=== PATIENT | female | born 1995 | race African-American/Black ===

== ENCOUNTER → 2023-04-01 | Outpatient (CLI) | payer OTHER ==
--- NOTE | 2023-04-03 15:42 | MR ---
EXAMINATION TYPE: MR knee RT wo con DATE OF EXAM: 04/01/2023 COMPARISON: None HISTORY: Rt knee pain and swelling, especially around kneecap TECHNIQUE: Multiplanar, multisequence imaging of the right knee is performed without IV contrast. FINDINGS: The osseous structures are intact and there is no bone contusion or fracture. The patella and patellar cartilage is intact and there is no joint effusion or chondromalacia patella . The quadriceps and patellar tendons are intact. There is no soft tissue swelling. The cruciate and collateral ligaments are intact. There is no meniscal tear either the medial and lateral meniscus. IMPRESSION: No significant abnormality seen.
== END | disposition home or self-care (01) ==
LOC: RADMRIMAIN 10:36
PROVIDERS: ATTEND Family Medicine
DX: M25.561 Pain in right knee (principal); G89.29 Other chronic pain

== ENCOUNTER → 2024-08-15 | Outpatient (CLI) | payer OTHER ==
--- NOTE | 2024-08-15 09:43 | MR ---
EXAMINATION TYPE: MR brain wo/w con DATE OF EXAM: 08/15/2024 9:20 AM COMPARISON: None. CLINICAL INDICATION: Female, 29 years old with history of R51.9 headaches; PHH, Migraines, numbness i n hands. TECHNIQUE: Multi planar, multi sequence imaging was performed through the brain including: T1, T2, In version recovery, susceptibility weighted imaging and gradient echo imaging and Diffusion weighted im aging. The patient was then given intravenous contrast and multi planar, T1 fat-saturation images wer e obtained. IV Contrast: 8 mL Gadobutrol FINDINGS: The gardner-white junctions, ventricular system, basal cisterns appear unremarkable. Diffusion-weighted imaging shows no evidence of restricted diffusion to suggest acute/subacute infarct. Intracranial ar terial flow voids are maintained. Midline structures show no abnormality. The susceptibility weighted images do not reveal any evidence for micro-hemorrhage. After administration of gadolinium, no abnor mal enhancement is seen. The bone marrow signal is within normal limits. Paranasal sinuses and mastoid air cells: Mild scattered paranasal sinus disease. Visualized orbits: Orbital contents are intact. IMPRESSION: 1. No evidence of intracranial mass, acute/subacute infarct, or abnormal enhancement. 2. No evidence for active demyelination nor significant white matter changes. [facility], , 08/15/2024 9:41 AM
== END | disposition home or self-care (01) ==
LOC: RADMRIMAIN 08:40
PROVIDERS: ATTEND Family Medicine
DX: R51.9 Headache, unspecified (principal)
CPT/HCPCS: 70553; A9585

== ENCOUNTER → 2024-08-22 | Outpatient (CLI) | payer OTHER ==
--- NOTE | 2024-08-22 09:57 | MR ---
EXAMINATION TYPE: MR knee LT wo con DATE OF EXAM: 08/22/2024 9:24 AM COMPARISON: None. CLINICAL INDICATION: Female, 29 years old with history of M25.569 PAIN IN UNSPECIFIED KNEE N94.19 DYS PAREUNI, RT knee pain medial and lateral sides, Knee locks going up stairs, Swelling when on her feet a lot IV Contrast: cc (None if empty) TECHNIQUE: Multiplanar, multisequence imaging of the left knee is performed without IV contrast. FINDINGS: MEDIAL MENISCUS: Anterior and posterior horns are intact without tear. LATERAL MENISCUS: Anterior and posterior horns are intact without tear. CRUCIATE LIGAMENTS: The anterior and posterior cruciate ligaments are intact and unremarkable. Cystic structure adjacent to the tibial insertion of the ACL measuring 6 mm which could reflect a small suzette glion cyst. COLLATERAL LIGAMENTS: The medial collateral ligament and lateral collateral ligament complex are inta ct and unremarkable. EXTENSOR MECHANISM: Visualized quadriceps and patellar tendons are intact. EFFUSION: No significant suprapatellar joint effusion. POPLITEAL CYST: No popliteal/gardner cyst. TRICOMPARTMENT SPACES: Intact CARTILAGE: Intact BONE MARROW SIGNAL: No focal abnormal marrow signal is appreciated. OTHER: No additional significant abnormality is appreciated. IMPRESSION: Cystic structure adjacent to the tibial insertion of the ACL measuring 6 mm which could reflect a sma ll ganglion cyst. [facility], , 08/22/2024 9:55 AM
--- NOTE | 2024-08-22 10:00 | MR ---
EXAMINATION TYPE: MR knee RT wo con DATE OF EXAM: 08/22/2024 9:12 AM COMPARISON: None. CLINICAL INDICATION: Female, 29 years old with history of M25.569 PAIN IN UNSPECIFIED KNEE N94.19 DYS PAREUNI, RT knee pain medial and lateral sides, Knee locks going up stairs, Swelling when on her feet a lot IV Contrast: cc (None if empty) TECHNIQUE: Multiplanar, multisequence imaging of the right knee is performed without IV contrast. FINDINGS: MEDIAL MENISCUS: Anterior and posterior horns are intact without tear. LATERAL MENISCUS: Anterior and posterior horns are intact without tear. CRUCIATE LIGAMENTS: The anterior and posterior cruciate ligaments are intact and unremarkable. COLLATERAL LIGAMENTS: The medial collateral ligament and lateral collateral ligament complex are inta ct and unremarkable. EXTENSOR MECHANISM: Visualized quadriceps and patellar tendons are intact. EFFUSION: No significant suprapatellar joint effusion. POPLITEAL CYST: No popliteal/gardner cyst. TRICOMPARTMENT SPACES: Intact CARTILAGE: Intact BONE MARROW SIGNAL: No focal abnormal marrow signal is appreciated. OTHER: No additional significant abnormality is appreciated. IMPRESSION: No evidence for internal derangement. [facility], , 08/22/2024 9:58 AM
--- NOTE | 2024-08-22 12:17 | US ---
EXAMINATION TYPE: US pelvis complete transvag DATE OF EXAM: 08/22/2024 COMPARISON: NONE CLINICAL INDICATION: Female, 29 years old with history of N94.19 DYSPAREUNI; IUD placement TECHNIQUE: Transvaginal (TV) and Transabdominal (TA) . Doppler imaging: Not performed. FINDINGS: EXAM MEASUREMENTS: Uterus: 8.3 x 3.5 x 4.7 cm Endometrial Stripe: .7 cm Right Ovary: 3.1 x 1.5 x 1.8 cm Left Ovary: 4.0 x 1.6 x 3.7 cm 1. Uterus: Anteverted Nabothian cyst seen IUD is visualized. 2. Endometrium: wnl 3. Right Ovary: wnl 4. Left Ovary: anechoic area seen 1.1 x 1.7 x 1.6 cm 5. Bilateral Adnexa: wnl 6. Posterior cul-de-sac: wnl IMPRESSION: IUD appears appropriately placed. Cervical nabothian cysts. Probable functional left ovar sherri cyst. O-RADS 2021 [email or web address] [email or web address], , 08/22/2024 12:15 PM
== END | disposition home or self-care (01) ==
LOC: RADMRIMAIN 08:00
PROVIDERS: ATTEND Family Medicine
DX: M25.561 Pain in right knee (principal); M25.562 Pain in left knee; N94.19 Other specified dyspareunia; N88.8 Other specified noninflammatory disorders of cervix uteri
CPT/HCPCS: 76830; 76856